=== PATIENT | female | born 1955 | race Two or more races ===

== ENCOUNTER 2022-05-17 09:12 | Outpatient (CLI) | payer OTHER | END 2022-05-17 09:13 | disposition home or self-care (01) | LOC: LAB 09:12 | PROVIDERS: ATTEND Orthopaedic Surgery | DX: D64.9 Anemia, unspecified (principal); N39.0 Urinary tract infection, site not specified; D68.9 Coagulation defect, unspecified; M75.121 Complete rotator cuff tear or rupture of right shoulder, not specified as traumatic ==

== ENCOUNTER 2022-06-07 07:33 | Day surgery (SDC) | payer OTHER ==
[~2022-06-07 07:33] MED LIST: ACTOS15 MG PO; CHILDREN'S ASPI81 MG PO; COZAAR50 MG PO; CRESTOR10 MG PO; JANUMET 50-1,01 EACH PO
== END 2022-06-07 15:55 | disposition home or self-care (01) ==
LOC: CIR.AMB 07:33
PROVIDERS: ATTEND Orthopaedic Surgery
DX: M75.121 Complete rotator cuff tear or rupture of right shoulder, not specified as traumatic (principal); M25.811 Other specified joint disorders, right shoulder; M19.011 Primary osteoarthritis, right shoulder; M75.21 Bicipital tendinitis, right shoulder; M75.41 Impingement syndrome of right shoulder; I10 Essential (primary) hypertension; E66.09 Other obesity due to excess calories; E11.9 Type 2 diabetes mellitus without complications; Z79.84 Long term (current) use of oral hypoglycemic drugs; Z86.73 Personal history of transient ischemic attack (TIA), and cerebral infarction without residual deficits; Z20.822 Contact with and (suspected) exposure to COVID-19

== ENCOUNTER 2022-10-07 09:49 | Outpatient (CLI) | payer OTHER | END 2022-10-07 09:54 | disposition home or self-care (01) | LOC: SONOGRAMA 09:49 | PROVIDERS: ATTEND Orthopaedic Surgery | DX: M25.512 Pain in left shoulder (principal) ==

== ENCOUNTER 2023-02-02 11:45 | Outpatient (CLI) | payer OTHER | END 2023-02-02 11:46 | disposition home or self-care (01) | LOC: NUCLEAR 11:45 | PROVIDERS: ATTEND Orthopaedic Surgery | DX: M81.0 Age-related osteoporosis without current pathological fracture (principal) ==

== ENCOUNTER 2024-01-04 12:23 | Outpatient (CLI) | payer OTHER | END 2024-01-04 12:33 | disposition home or self-care (01) | LOC: RAD 12:23 | PROVIDERS: ATTEND Orthopaedic Surgery | DX: M75.111 Incomplete rotator cuff tear or rupture of right shoulder, not specified as traumatic (principal); S20.211A Contusion of right front wall of thorax, initial encounter; Z76.89 Persons encountering health services in other specified circumstances ==

== ENCOUNTER 2024-07-16 11:06 | Outpatient (CLI) | payer OTHER | END 2024-07-16 11:07 | disposition home or self-care (01) | LOC: NUCLEAR 11:06 | PROVIDERS: ATTEND Orthopaedic Surgery | DX: I73.89 Other specified peripheral vascular diseases (principal); I77.1 Stricture of artery ==

== ENCOUNTER 2024-08-07 09:33 | Outpatient (CLI) | payer OTHER | END 2024-08-07 09:36 | disposition home or self-care (01) | LOC: MRI 09:33 | PROVIDERS: ATTEND Orthopaedic Surgery | DX: M25.562 Pain in left knee (principal); M17.12 Unilateral primary osteoarthritis, left knee | CPT/HCPCS: 73718 ==

== ENCOUNTER 2025-04-02 10:48 | Outpatient (CLI) | payer OTHER | END 2025-04-02 10:54 | disposition home or self-care (01) | LOC: RAD 10:48 | PROVIDERS: ATTEND Orthopaedic Surgery | DX: M25.561 Pain in right knee (principal) ==

== ENCOUNTER → 2025-04-14 10:33 | Outpatient (CLI) | payer OTHER | END | disposition home or self-care (01) | LOC: NUCLEAR 10:33 | PROVIDERS: ATTEND Orthopaedic Surgery | DX: M81.0 Age-related osteoporosis without current pathological fracture (principal) ==

== ENCOUNTER 2025-04-30 09:44 | Outpatient (CLI) | payer OTHER ==
[2025-04-30 11:39] LABS: ALT/SGPT 21.0 U/L (12-78); AST/SGOT 17.0 U/L (15-37); BILIRUBIN TOTAL 0.83 mg/dL (0.3-1.2); BUN CREA RATIO 30.0 (7.0-25.0); CREATININE SERUM 0.57 mg/dL (0.55-1.02); GFR 105.79; GLOBULINA 3.4 G/DL (2.4-3.5); GLUCOSE FASTING 93.0 mg/dL (65-100); OSMOLALITY SERUM 284.0 MOSM/KG (275-295)
[2025-05-01 10:07] LABS: CALCIUM IONIZED 5.2 mg/dL (4.5-5.6)
[2025-05-07 16:10] LABS: VITAMIN K 0.53 ng/mL (0.10-2.20)
== END 2025-04-30 09:50 | disposition home or self-care (01) ==
LOC: LAB 09:44
PROVIDERS: ATTEND Orthopaedic Surgery
DX: E55.9 Vitamin D deficiency, unspecified (principal); M85.9 Disorder of bone density and structure, unspecified; E56.1 Deficiency of vitamin K; E21.3 Hyperparathyroidism, unspecified; E88.89 Other specified metabolic disorders; M81.8 Other osteoporosis without current pathological fracture